=== PATIENT | female | born 2000 | race Two or more races ===

== ENCOUNTER 2022-09-25 21:16 | Inpatient (IN) | payer MEDICAID, OTHER ==
[~2022-09-25] VITALS: Ht 167.6 cm; Wt 77.6 kg
[2022-09-25 22:15] LABS: Basophils # (auto) 0 10 ^3/uL (0-0.2); Basophils % (auto) 0.2 % (0.0-2.0); Eosinophils # (auto) 0.1 10 ^3/uL (0-0.8); Eosinophils % (auto) 0.8 % (0.0-7.0); Hematocrit 38.2 % (36.0-46.0); Hemoglobin 12.8 g/dL (12.2-16.2); Lymphocytes # (auto) 2.2 10 ^3/uL (0.4-5.4); Lymphocytes % (auto) 26.6 % (10.0-50.0); Mean Corpuscular Hemoglobin 28.2 pg (28.0-32.0); Mean Corpuscular Hgb Conc. 33.6 g/dL (32.0-36.0); Mean Corpuscular Volume 84.1 fL (80.0-100.0); Monocytes # (auto) 0.4 10 ^3/uL (0-1.3); Monocytes % (auto) 4.8 % (0.0-12.0); Neutrophils # (auto) 5.5 10 ^3/uL (1.6-8.6); Neutrophils % (auto) 67.6 % (37.0-80.0); Nucleated Red Blood Cells % 0.1 %; Red Blood Cells 4.54 10^6/uL (4.0-5.20); Red Cell Distribution Width 13.1 % (11.8-14.3); White Blood Cell 8.2 10^3/uL (4.4-10.8)
[2022-09-25 22:24] LABS: INR 0.93 (0.9-1.15); Partial Thromboplastin Time 27.1 sec (24.6-33.4)
[2022-09-25 22:31] LABS: Albumin 3.9 g/dL (3.4-5.0); Magnesium 2.3 mg/dL (1.6-2.6); Potassium 3.7 mmol/L (3.5-5.1)
[2022-09-25 22:34] LABS: Bilirubin, Total 0.4 mg/dL (0.2-1.0); Total Protein 7.4 g/dL (6.4-8.2)
[2022-09-26] VITALS (15 sets, daily range): BP systolic 94–131; BP diastolic 60–93
[2022-09-26] MEDS ORDERED: PROPRANOLOL HCL 1 MG/ML VIAL IV ONE (05:15)
[2022-09-26] MEDS ORDERED: methIMAzole 5 MG TAB PO ONE (05:45)
[2022-09-26] MEDS ORDERED: SODIUM CHLORIDE 0.9% 1,000 ML IV ONE (05:45)
[2022-09-26] MEDS ORDERED: LORazepam 2MG/ML-1ML VIAL IV ONE (06:00)
[2022-09-26] MEDS ORDERED: ONDANSETRON HCL 4 MG/2 ML VIAL IV PRN (09:15)
[2022-09-26] MEDS ORDERED: DOCUSATE SOD 100 MG CAP PO PRN (09:15)
[2022-09-26] MEDS ORDERED: MORPHINE SULFATE INJ 2 MG/ml SYRG IV PRN (09:15)
[2022-09-26] MEDS ORDERED: DEXTROSE (50%) 50ML SYRG IV PRN (09:45)
[2022-09-26] MEDS: methIMAzole 5 MG TAB PO SCH ×4 (11:16→22:08)
[2022-09-26] MEDS: PROPRANOLOL HCL 20 MG TAB PO SCH ×4 (11:17→22:11)
[2022-09-26] MEDS: InsuLIN REG 1unit/0.01ml Soln (100units/ml) SC SCH ×3 (11:30→21:53)
[2022-09-26] MEDS: SODIUM CHLORIDE 0.9% 1,000 ML IV SCH ×3 (13:33→21:51)
[2022-09-26] MEDS: ACCU-CHEK COMFORT CURVE STRIP VI SCH ×3 (13:34→21:51)
[2022-09-26] MEDS: LORazepam 2MG/ML-1ML VIAL IV PRN (15:35)
[2022-09-27] VITALS (16 sets, daily range): BP systolic 2–127; BP diastolic 66–86
[2022-09-27] MEDS: LORazepam 2MG/ML-1ML VIAL IV PRN (00:22)
[2022-09-27] MEDS: methIMAzole 5 MG TAB PO SCH ×3 (02:21→10:26)
[2022-09-27] MEDS: PROPRANOLOL HCL 20 MG TAB PO SCH ×3 (02:23→10:00)
[2022-09-27] MEDS: SODIUM CHLORIDE 0.9% 1,000 ML IV SCH (06:01)
[2022-09-27 06:06] LABS: Potassium 4.1 mmol/L (3.5-5.1)
[2022-09-27 06:15] LABS: Albumin 3.1 g/dL (3.4-5.0); BUN/Creatinine Ratio 15.6 (10.0-20.0); Calcium 8.8 mg/dL (8.5-10.1)
[2022-09-27 06:18] LABS: Bilirubin, Total 0.7 mg/dL (0.2-1.0); Total Protein 6.4 g/dL (6.4-8.2)
[2022-09-27] MEDS: ACCU-CHEK COMFORT CURVE STRIP VI SCH (06:20)
[2022-09-27] MEDS: InsuLIN REG 1unit/0.01ml Soln (100units/ml) SC SCH ×2 (06:20→11:30)
[2022-09-27 06:28] LABS: Basophils # (auto) 0 10 ^3/uL (0-0.2); Basophils % (auto) 0.4 % (0.0-2.0); Eosinophils # (auto) 0.1 10 ^3/uL (0-0.8); Eosinophils % (auto) 1.6 % (0.0-7.0); Hematocrit 34.1 % (36.0-46.0); Hemoglobin 11.5 g/dL (12.2-16.2); Lymphocytes # (auto) 2.7 10 ^3/uL (0.4-5.4); Lymphocytes % (auto) 38.8 % (10.0-50.0); Mean Corpuscular Hemoglobin 28.5 pg (28.0-32.0); Mean Corpuscular Hgb Conc. 33.6 g/dL (32.0-36.0); Mean Corpuscular Volume 84.8 fL (80.0-100.0); Monocytes # (auto) 0.7 10 ^3/uL (0-1.3); Monocytes % (auto) 9.7 % (0.0-12.0); Neutrophils # (auto) 3.5 10 ^3/uL (1.6-8.6); Neutrophils % (auto) 49.5 % (37.0-80.0); Nucleated Red Blood Cells % 0.1 %; Red Blood Cells 4.02 10^6/uL (4.0-5.20); Red Cell Distribution Width 13.1 % (11.8-14.3); White Blood Cell 7.1 10^3/uL (4.4-10.8)
[2022-09-27] MEDS ORDERED: METH10TA87 PO (11:46)
== END 2022-09-27 12:50 | disposition home or self-care (01) | DRG 427 ==
LOC: ER 21:16 → TELE 09-26 09:17 → DOU IN ICU 09-26 11:23
PROVIDERS: ADMIT Nurse Practitioner Family; ATTEND Internal Medicine Geriatric Medicine
DX: E05.91 Thyrotoxicosis, unspecified with thyrotoxic crisis or storm (principal)
CPT/HCPCS: 36415; 70450; 71250; 74176; 76536; 80053; 82962; 83735; 83880; 84436; 84443; 84480; 84484; 85025; 85610; 85730; 86376; 86800; 87081; 93005; 96361; 96374; 96375; 99291; G0378; J2405

== ENCOUNTER 2022-10-24 03:49 | Emergency (ER) | payer BC, MEDICAID ==
[~2022-10-24] VITALS: Ht 167.6 cm; Wt 81.3 kg
[~2022-10-24 03:49] MED LIST: METH10TA87 PO
[2022-10-24 07:28] VITALS: BP 141/94
[2022-10-24] MEDS ORDERED: ACETAMINOPHEN 500 MG TAB PO ONE (07:30)
[2022-10-24] MEDS ORDERED: ACET-1080 PO (07:31)
[2022-10-24] MEDS ORDERED: AZIT500T66 PO (07:31)
== END 2022-10-24 07:39 | disposition home or self-care (01) ==
LOC: ER 03:49
DX: G44.209 Tension-type headache, unspecified, not intractable (principal); H66.91 Otitis media, unspecified, right ear; F41.9 Anxiety disorder, unspecified
CPT/HCPCS: 70450

== ENCOUNTER 2022-11-15 02:59 | Inpatient (IN) | payer BC ==
[~2022-11-15] VITALS: Ht 167.6 cm; Wt 84.1 kg
[~2022-11-15 02:59] MED LIST changes: +ACET-1080 PO; +AZIT500T66 PO
[2022-11-15] MEDS ORDERED: PROPRANOLOL HCL 1 MG/ML VIAL IV ONE (03:30)
[2022-11-15 03:43] LABS: Basophils # (auto) 0 10 ^3/uL (0-0.2); Basophils % (auto) 0.6 % (0.0-2.0); Eosinophils # (auto) 0.2 10 ^3/uL (0-0.8); Eosinophils % (auto) 2.5 % (0.0-7.0); Hematocrit 38.5 % (36.0-46.0); Hemoglobin 12.8 g/dL (12.2-16.2); Lymphocytes # (auto) 2.5 10 ^3/uL (0.4-5.4); Lymphocytes % (auto) 33.1 % (10.0-50.0); Mean Corpuscular Hemoglobin 27.9 pg (28.0-32.0); Mean Corpuscular Hgb Conc. 33.1 g/dL (32.0-36.0); Mean Corpuscular Volume 84.1 fL (80.0-100.0); Monocytes # (auto) 0.7 10 ^3/uL (0-1.3); Monocytes % (auto) 9.6 % (0.0-12.0); Neutrophils # (auto) 4.1 10 ^3/uL (1.6-8.6); Neutrophils % (auto) 54.2 % (37.0-80.0); Nucleated Red Blood Cells % 0.1 %; Red Blood Cells 4.58 10^6/uL (4.0-5.20); Red Cell Distribution Width 13.7 % (11.8-14.3); White Blood Cell 7.5 10^3/uL (4.4-10.8)
[2022-11-15] MEDS ORDERED: LORazepam 2MG/ML-1ML VIAL IV ONE (03:45)
[2022-11-15] MEDS ORDERED: methIMAzole 5 MG TAB PO ONE (03:45)
[2022-11-15 04:04] LABS: Calcium 8.7 mg/dL (8.5-10.1); Potassium 3.2 mmol/L (3.5-5.1)
[2022-11-15 04:08] LABS: BUN/Creatinine Ratio 12.5 (10.0-20.0); Bilirubin, Total 0.4 mg/dL (0.2-1.0); Total Protein 7.6 g/dL (6.4-8.2)
[2022-11-15] MEDS ORDERED: HYDROcodone-ACET 5/325MG TAB PO PRN (04:45)
[2022-11-15] MEDS ORDERED: ONDANSETRON HCL 4 MG/2 ML VIAL IV PRN (04:45)
[2022-11-15] MEDS ORDERED: PROPRANOLOL HCL 20 MG TAB PO ONE (04:45)
[2022-11-15] MEDS ORDERED: ACETAMINOPHEN 325 MG TAB PO PRN (04:45)
[2022-11-15] MEDS ORDERED: DOCUSATE SOD 100 MG CAP PO PRN (04:45)
[2022-11-15] MEDS ORDERED: MORPHINE SULFATE INJ 2 MG/ml SYRG IV PRN (05:00)
[2022-11-15] MEDS ORDERED: POTASSIUM CHL 20 Meq TABLET PO ONE (05:00)
[2022-11-15] MEDS ORDERED: NITROGLYCERIN 0.4 MG SL TAB SL PRN (05:00)
[2022-11-15] MEDS: SODIUM CHLOR 0.9% PF (SALINE LOCK) 10ML VIAL/SYR IV SCH ×3 (06:12→22:05)
[2022-11-15] MEDS: PROPRANOLOL HCL 20 MG TAB PO SCH ×3 (06:33→22:05)
[2022-11-15] MEDS: methIMAzole 5 MG TAB PO SCH ×3 (06:33→22:05)
[2022-11-15 09:14] LABS: Urine Bacteria FEW /hpf (None Seen); Urine Blood Negative /uL (Negative); Urine Specific Gravity 1.024 (1.001-1.035); Urine WBC 1 /hpf (0 - 5)
[2022-11-15] MEDS: ASPirin 81 mg TAB PO SCH (10:51)
[2022-11-15 18:40] VITALS: BP 106/71
[2022-11-16 05:22] VITALS: BP 101/60
[2022-11-16 05:49] LABS: Basophils # (auto) 0 10 ^3/uL (0-0.2); Basophils % (auto) 0.7 % (0.0-2.0); Eosinophils # (auto) 0.2 10 ^3/uL (0-0.8); Hematocrit 38.5 % (36.0-46.0); Hemoglobin 12.5 g/dL (12.2-16.2); Lymphocytes # (auto) 1.8 10 ^3/uL (0.4-5.4); Lymphocytes % (auto) 27.6 % (10.0-50.0); Mean Corpuscular Hemoglobin 27.4 pg (28.0-32.0); Mean Corpuscular Hgb Conc. 32.4 g/dL (32.0-36.0); Mean Corpuscular Volume 84.6 fL (80.0-100.0); Monocytes # (auto) 0.7 10 ^3/uL (0-1.3); Monocytes % (auto) 10.8 % (0.0-12.0); Neutrophils # (auto) 3.7 10 ^3/uL (1.6-8.6); Neutrophils % (auto) 57.9 % (37.0-80.0); Nucleated Red Blood Cells % 0.2 %; Red Blood Cells 4.55 10^6/uL (4.0-5.20); Red Cell Distribution Width 13.7 % (11.8-14.3); White Blood Cell 6.3 10^3/uL (4.4-10.8)
[2022-11-16 06:08] LABS: Albumin 3.6 g/dL (3.4-5.0); Calcium 8.5 mg/dL (8.5-10.1); Potassium 4.1 mmol/L (3.5-5.1)
[2022-11-16] MEDS: PROPRANOLOL HCL 20 MG TAB PO SCH ×3 (06:09→22:00)
[2022-11-16] MEDS: methIMAzole 5 MG TAB PO SCH ×3 (06:09→22:16)
[2022-11-16] MEDS: SODIUM CHLOR 0.9% PF (SALINE LOCK) 10ML VIAL/SYR IV SCH ×3 (06:09→22:16)
[2022-11-16 06:14] LABS: BUN/Creatinine Ratio 15.3 (10.0-20.0); Bilirubin, Total 0.8 mg/dL (0.2-1.0); Total Protein 6.9 g/dL (6.4-8.2)
[2022-11-16 09:00] VITALS: BP 92/44
[2022-11-16] MEDS: ASPirin 81 mg TAB PO SCH (09:48)
[2022-11-16 12:51] VITALS: BP 98/68
[2022-11-16 17:24] VITALS: BP 95/56
[2022-11-16 22:00] VITALS: BP 96/62
[2022-11-17 05:00] VITALS: BP 105/62
[2022-11-17] MEDS: methIMAzole 5 MG TAB PO SCH ×3 (05:39→21:41)
[2022-11-17] MEDS: PROPRANOLOL HCL 20 MG TAB PO SCH ×3 (05:40→21:44)
[2022-11-17] MEDS: SODIUM CHLOR 0.9% PF (SALINE LOCK) 10ML VIAL/SYR IV SCH ×3 (05:41→21:40)
[2022-11-17 08:37] VITALS: BP 100/68
[2022-11-17] MEDS: ASPirin 81 mg TAB PO SCH (09:53)
[2022-11-17 12:43] VITALS: BP 92/61
[2022-11-17] MEDS ORDERED: MAALOX PLUS or MAALOX 30 ML PO PRN (20:45)
[2022-11-17 22:00] VITALS: BP 106/63
[2022-11-18 05:00] VITALS: BP 105/64
[2022-11-18] MEDS: SODIUM CHLOR 0.9% PF (SALINE LOCK) 10ML VIAL/SYR IV SCH ×2 (05:09→16:09)
[2022-11-18] MEDS: PROPRANOLOL HCL 20 MG TAB PO SCH (05:10)
[2022-11-18 08:00] VITALS: BP 99/63
[2022-11-18] MEDS: methIMAzole 5 MG TAB PO SCH (10:32)
[2022-11-18] MEDS: ASPirin 81 mg TAB PO SCH (10:32)
[2022-11-18 11:21] LABS: Alcohol, Urine < 3.0 mg/dL (0-10); Amphetamine Screen, Urine NEGATIVE (NEGATIVE); Barbiturate Scree,Urine NEGATIVE (NEGATIVE); Benzodiazephine Screen, Urine NEGATIVE (NEGATIVE); Cannabinoid Screen, Urine NEGATIVE (NEGATIVE); Cocaine Screen, Urine NEGATIVE (NEGATIVE); Opiate Scree,Urine NEGATIVE (NEGATIVE); Phencyclidine Screen, Urine NEGATIVE (NEGATIVE)
[2022-11-18 12:00] VITALS: BP 95/64
[2022-11-18] MEDS ORDERED: PROPRANOLOL HCL 20 MG TAB PO SCH (15:30)
[2022-11-18 16:00] VITALS: BP 99/70
[2022-11-18] MEDS ORDERED: MAGNESIUM OXIDE 400 MG TAB PO ONE (16:15)
[2022-11-18 17:11] VITALS: BP 100/60
[2022-11-19] MEDS ORDERED: MAGNESIUM OXIDE 400 MG TAB PO SCH (10:00)
== END 2022-11-18 18:50 | disposition home or self-care (01) | DRG 645 ==
LOC: ER 03:00 → TELE 04:55 → TELE-EAST 18:15
PROVIDERS: ADMIT Nurse Practitioner Family; ATTEND Internal Medicine
DX: E05.91 Thyrotoxicosis, unspecified with thyrotoxic crisis or storm (principal); E87.6 Hypokalemia; F41.9 Anxiety disorder, unspecified; Z83.3 Family history of diabetes mellitus; Z82.49 Family history of ischemic heart disease and other diseases of the circulatory system
CPT/HCPCS: 36415; 71045; 80053; 80307; 81001; 81025; 83735; 84436; 84439; 84443; 84480; 84484; 84702; 85025; 93005; 93306; 96374; 96375; G0378

== ENCOUNTER 2022-11-21 13:54 | Emergency (ER) | payer BC ==
[~2022-11-21] VITALS: Ht 167.6 cm; Wt 78.0 kg
[~2022-11-21 13:54] MED LIST changes: -METH10TA87 PO
[2022-11-21 14:36] LABS: Basophils # (auto) 0 10 ^3/uL (0-0.2); Basophils % (auto) 0.7 % (0.0-2.0); Eosinophils # (auto) 0.1 10 ^3/uL (0-0.8); Hematocrit 39.9 % (36.0-46.0); Hemoglobin 13.1 g/dL (12.2-16.2); Lymphocytes # (auto) 2.3 10 ^3/uL (0.4-5.4); Lymphocytes % (auto) 35.6 % (10.0-50.0); Mean Corpuscular Hemoglobin 27.5 pg (28.0-32.0); Mean Corpuscular Hgb Conc. 32.7 g/dL (32.0-36.0); Monocytes # (auto) 0.7 10 ^3/uL (0-1.3); Monocytes % (auto) 10.7 % (0.0-12.0); Neutrophils # (auto) 3.3 10 ^3/uL (1.6-8.6); Nucleated Red Blood Cells % 0.1 %; Red Blood Cells 4.75 10^6/uL (4.0-5.20); Red Cell Distribution Width 13.4 % (11.8-14.3); White Blood Cell 6.5 10^3/uL (4.4-10.8)
[2022-11-21 14:51] LABS: INR 0.98 (0.9-1.15); Partial Thromboplastin Time 28.5 SEC (24.5-34.5)
[2022-11-21 14:52] LABS: Albumin 3.9 g/dL (3.4-5.0); BUN/Creatinine Ratio 14.1 (10.0-20.0); Calcium 8.7 mg/dL (8.5-10.1); Potassium 3.8 mmol/L (3.5-5.1)
[2022-11-21 14:55] LABS: Bilirubin, Total 0.5 mg/dL (0.2-1.0); Total Protein 7.2 g/dL (6.4-8.2)
[2022-11-21] MEDS ORDERED: SODIUM CHLORIDE 0.9% 1,000 ML IV ONE (19:00)
[2022-11-21] MEDS ORDERED: METOPROLOL TARTRATE 1MG/1ML-5ML VIAL IV ONE (19:00)
[2022-11-21 20:00] VITALS: BP 116/77
== END 2022-11-21 20:21 | disposition home or self-care (01) ==
LOC: ER 13:54
DX: R00.2 Palpitations (principal); E05.90 Thyrotoxicosis, unspecified without thyrotoxic crisis or storm; Z79.2 Long term (current) use of antibiotics; Z79.899 Other long term (current) drug therapy
CPT/HCPCS: 36415; 71045; 80053; 83735; 83880; 84443; 84484; 85025; 85610; 85730; 93005; 96361; 96374; 99285; J7030

== ENCOUNTER 2022-12-24 01:46 | Emergency (ER) | payer BC ==
[~2022-12-24] VITALS: Ht 167.6 cm; Wt 78.0 kg
[2022-12-24 02:32] LABS: Basophils # (auto) 0 10 ^3/uL (0-0.2); Basophils % (auto) 0.6 % (0.0-2.0); Eosinophils # (auto) 0.1 10 ^3/uL (0-0.8); Eosinophils % (auto) 1.8 % (0.0-7.0); Hematocrit 38.7 % (36.0-46.0); Hemoglobin 12.7 g/dL (12.2-16.2); Lymphocytes # (auto) 2.4 10 ^3/uL (0.4-5.4); Mean Corpuscular Hgb Conc. 32.9 g/dL (32.0-36.0); Monocytes # (auto) 0.4 10 ^3/uL (0-1.3); Monocytes % (auto) 7.7 % (0.0-12.0); Neutrophils # (auto) 2.2 10 ^3/uL (1.6-8.6); Neutrophils % (auto) 43.9 % (37.0-80.0); Nucleated Red Blood Cells % 0.1 %; Red Blood Cells 4.55 10^6/uL (4.0-5.20); Red Cell Distribution Width 14.2 % (11.8-14.3); White Blood Cell 5.1 10^3/uL (4.4-10.8)
[2022-12-24 02:57] LABS: Urine Bacteria FEW /hpf (None Seen); Urine Blood 3+ /uL (Negative); Urine Clarity HAZY (Clear); Urine Color Yellow (Yellow); Urine Mucus FEW (None Seen); Urine Protein, UAD TRACE (Negative); Urine Specific Gravity 1.027 (1.001-1.035); Urine Urobilinogen Normal (Negative); Urine WBC 4 /hpf (0 - 5); Urine pH 5.5 (5.0-8.0)
[2022-12-24 02:59] LABS: Albumin 3.8 g/dL (3.4-5.0); BUN/Creatinine Ratio 14.5 (10.0-20.0); Calcium 8.7 mg/dL (8.5-10.1); Magnesium 2.2 mg/dL (1.6-2.6); Potassium 3.8 mmol/L (3.5-5.1)
[2022-12-24 03:02] LABS: Bilirubin, Total 0.4 mg/dL (0.2-1.0); Total Protein 7.4 g/dL (6.4-8.2)
[2022-12-24] MEDS ORDERED: NITR-87 PO (07:11)
[2022-12-24 07:48] VITALS: BP 117/73; PULSE 81; RESP 18; TEMP 98.2; O2SAT 99
== END 2022-12-24 07:49 | disposition home or self-care (01) ==
LOC: ER 01:49
DX: R00.2 Palpitations (principal); N39.0 Urinary tract infection, site not specified; E03.9 Hypothyroidism, unspecified; Z79.2 Long term (current) use of antibiotics; Z79.899 Other long term (current) drug therapy
CPT/HCPCS: 36415; 71045; 80053; 81001; 83735; 83880; 84443; 84484; 85025; 93005

== ENCOUNTER 2023-03-21 13:15 | Emergency (ER) | payer SELFPAY ==
[~2023-03-21] VITALS: Ht 167.6 cm; Wt 78.0 kg
[~2023-03-21 13:15] MED LIST changes: +NITR-87 PO
[2023-03-21] MEDS ORDERED: SODIUM CHLORIDE 0.9% 1,000 ML IV ONE (13:45)
[2023-03-21 14:16] LABS: Basophils # (auto) 0 10 ^3/uL (0-0.2); Basophils % (auto) 0.4 % (0.0-2.0); Eosinophils # (auto) 0.1 10 ^3/uL (0-0.8); Eosinophils % (auto) 1.2 % (0.0-7.0); Hematocrit 42.1 % (36.0-46.0); Hemoglobin 13.7 g/dL (12.2-16.2); Lymphocytes # (auto) 1.6 10 ^3/uL (0.4-5.4); Lymphocytes % (auto) 34.7 % (10.0-50.0); Mean Corpuscular Hemoglobin 27.9 pg (28.0-32.0); Mean Corpuscular Hgb Conc. 32.6 g/dL (32.0-36.0); Mean Corpuscular Volume 85.5 fL (80.0-100.0); Monocytes # (auto) 0.4 10 ^3/uL (0-1.3); Monocytes % (auto) 7.9 % (0.0-12.0); Neutrophils # (auto) 2.6 10 ^3/uL (1.6-8.6); Neutrophils % (auto) 55.8 % (37.0-80.0); Nucleated Red Blood Cells % 0.3 %; Red Blood Cells 4.92 10^6/uL (4.0-5.20); Red Cell Distribution Width 14.9 % (11.8-14.3); White Blood Cell 4.7 10^3/uL (4.4-10.8)
[2023-03-21 14:23] LABS: Alanine Aminotransferase 11 U/L (7-40); Alkaline Phosphatase 86 U/L (46-116); Anion Gap 4 (5-15); BUN/Creatinine Ratio 10.7 (10.0-20.0); Blood Urea Nitrogen 9 mg/dL (9-23); Calcium 10.1 mg/dL (8.7-10.4); Carbon Dioxide 28 mmol/L (20-30); Chloride 106 mmol/L (98-107); Glucose 91 mg/dL (74-106); Magnesium 2.1 mg/dL (1.6-2.6); Potassium 4.3 mmol/L (3.5-5.1); Sodium 138 mmol/L (136-145)
[2023-03-21 14:24] LABS: Albumin 5.1 g/dL (3.2-4.8); Aspartate Aminotransferase 14 U/L (13-40); Bilirubin, Total 0.9 mg/dL (0.2-1.0)
[2023-03-21] MEDS ORDERED: MECL25CH85 PO (16:34)
[2023-03-21 17:26] VITALS: BP 110/63; PULSE 74; RESP 16; TEMP 98.2; O2SAT 96
[2023-03-22 05:07] LABS: Free Thyroxine Index 2.6 (1.2-4.9); Thyroxine (T4) 9.7 ug/dL (4.5-12.0)
== END 2023-03-21 17:28 | disposition home or self-care (01) ==
LOC: ER 13:15
DX: R42 Dizziness and giddiness (principal)
CPT/HCPCS: 36415; 71046; 80053; 83735; 84443; 85025; 85379; 96360; 99284; J7030